=== PATIENT | male | born 1990 | race American Indian/Alaskan Native ===

== ENCOUNTER 2022-04-22 16:39 | Emergency (ER) | payer SELFPAY ==
[2022-04-22 19:21] VITALS: BP 107/75
[2022-04-23 03:52] LABS: Color,Urine Colorless (Yellow)
--- NOTE | 2022-04-23 05:00 | Emergency Department Report ---
ED Male HPI - General Chief complaint: Urogenital-Male Stated complaint: STI Time Seen by Provider: 04/23/22 04:41 Source: patient Mode of arrival: Ambulatory Limitations: No Limitations - History of Present Illness Initial comments: 32-year-old male asymptomatic presents emerged department complaining possible contact with an STD reports having a little white discharge about a 2 weeks ago while he was taking a drug screen but reports no other issues. No fever, chills, sweats. No chest pain palpitations, nausea vomiting, no abdominal pain, no hematuria, no dysuria. No testicular pain or swelling no rashes. -: Gradual Radiation: none Severity: mild Consistency: constant Improves with: none Worsens with: none new medication denies other symptoms - Related Data Previous Rx's Medication Instructions Recorded Last Taken Type metroNIDAZOLE [Flagyl] 2,000 mg PO ONCE #4 04/23/22 Unknown Rx Allergies Allergy/AdvReac Type Severity Reaction Status Date / Time No Known Allergies Allergy Verified 04/22/22 19:22 ED Review of Systems ROS: Stated complaint: STI Other details as noted in HPI Comment: All other systems reviewed and negative ED Past Medical Hx - Past Medical History Previous Medical History?: No - Surgical History Past Surgical History?: No - Medications Home Medications: Home Medications Medication Instructions Recorded Confirmed Last Taken Type metroNIDAZOLE [Flagyl] 2,000 mg PO ONCE #4 04/23/22 Unknown Rx ED Physical Exam - General Limitations: No Limitations General appearance: alert, in no apparent distress - Head Head exam: Present: atraumatic, normocephalic - Eye Eye exam: Present: normal appearance, PERRL, EOMI Pupils: Present: normal accommodation - ENT ENT exam: Present: normal exam, normal orophraynx, mucous membranes moist, TM's normal bilaterally - Neck Neck exam: Present: normal inspection - Respiratory Respiratory exam: Present: normal lung sounds bilaterally. Absent: respiratory distress - Cardiovascular Cardiovascular Exam: Present: regular rate, normal rhythm. Absent: systolic murmur, diastolic murmur, rubs, gallop - GI/Abdominal GI/Abdominal exam: Present: soft, normal bowel sounds - Rectal Rectal exam: Present: deferred - Extremities Exam Extremities exam: Present: normal inspection - Back Exam Back exam: Present: normal inspection - Neurological Exam Neurological exam: Present: alert, oriented X3 - Psychiatric Psychiatric exam: Present: normal affect, normal mood - Skin Skin exam: Present: warm, dry, intact, normal color. Absent: rash ED Course Vital Signs 04/22/22 19:18 Temperature 99.1 F Pulse Rate 68 Respiratory 16 Rate Blood Pressure 107/75 [Right] O2 Sat by Pulse 100 Oximetry Critical care attestation.: If time is entered above; I have spent that time in minutes in the direct care of this critically ill patient, excluding procedure time. ED Disposition Clinical Impression: Possible exposure to STD Disposition: 01 HOME / SELF CARE / HOMELESS Is pt being admited?: No Does the pt Need Aspirin: No Condition: Stable Instructions: Safe Sex Prescriptions: metroNIDAZOLE [Flagyl] 2,000 mg PO ONCE #4 Referrals: [facility] Depart [Outside] - 3-5 Days Forms: Work/School Release Form(ED)
== END 2022-04-23 05:06 | disposition home or self-care (01) ==
LOC: ED 16:39
DX: Z20.2 Contact with and (suspected) exposure to infections with a predominantly sexual mode of transmission (principal)
CPT/HCPCS: 81001; 99283